=== PATIENT | female | born 1970 | race Caucasian/White ===

== ENCOUNTER → 2017-06-24 | Outpatient (CLI) | payer SELFPAY | END | disposition home or self-care (01) | LOC: GMATM 20:42 | PROVIDERS: ATTEND Nurse Practitioner Family | DX: N30.01 Acute cystitis with hematuria (principal) ==

== ENCOUNTER 2018-01-01 04:41 | Emergency (ER) | payer OTHER ==
[2018-01-01] MEDS ORDERED: LACTATED RINGERS 1,000 ML IVS ONE (04:59)
--- NOTE | 2018-01-01 04:59 | ED.PDOC ---
History of Present Illness - General Information Source: patient Exam Limitations: no limitations - History of Present Illness Initial Comments: Eulalia Blunt 47 y/o female came to ER after she woke up early this am with sudden onset of dull pain right side of abdomen radiating to her back followed by multiple episodes of nausea /vomiting with fresh blood in the vomitus and getting more constant and not better so was brought to ER.No diarrhea had regular bm this am,no dysuria,no hematuria.No chronic medical problems except for hypothyroidism. Abdominal Pain Onset Location: RLQ Pain Radiation: back Quality: dull, steady Timing/Duration: 1-3 hours Improving Factors: nothing Worsening Factors: nothing Associated Symptoms: nausea/vomiting <Mayito Smyth - Last Filed: 01/01/18 06:48> <Tien Grover - Last Filed: 01/01/18 08:47> - General Chief Complaint: Abdominal Pain Stated Complaint: R abd. pain poss. r/t cyst, N/V Time Seen by Provider: 01/01/18 04:56 Review of Systems - Review of Systems Constitutional: States: no symptoms reported EENTM: States: no symptoms reported Respiratory: States: no symptoms reported Cardiology: States: no symptoms reported Gastrointestinal/Abdominal: States: see HPI Genitourinary: States: no symptoms reported Musculoskeletal: States: no symptoms reported Skin: States: no symptoms reported Neurological: States: no symptoms reported <Mayito Smyth R - Last Filed: 01/01/18 06:48> Past Medical History (General) - Patient Medical History Hx Other PMH: Yes - hypothyroidism Surgical History: other - breast reduction - Social History Hx Tobacco Use: No Hx Alcohol Use: No Hx Substance Use: No Hx Physical Abuse: No Hx Emotional Abuse: No - Female History Hx Last Menstrual Period: 11/28/15 - irregular periods Patient : No <Mayito Smyth - Last Filed: 01/01/18 06:48> Family Medical History - Family History Mother Family History: Unknown Hx Cardiac Disease: Yes - dad <Mayito Smyth R - Last Filed: 01/01/18 06:48> Physical Exam - Physical Exam General Appearance: Alert, Anxious, No apparent distress Eyes, Ears, Nose, Throat Exam: normal ENT inspection, pharynx normal Neck: non-tender, full range of motion, supple Respiratory: chest non-tender, lungs clear, normal breath sounds Cardiovascular/Chest: normal peripheral pulses, regular rate, rhythm, no murmur Peripheral Pulses: No deficit Gastrointestinal/Abdominal: normal bowel sounds, soft, no organomegaly, no pulsatile mass, tenderness - right side abdomen,no guarding ,no rigidity Back Exam: no CVA tenderness, no vertebral tenderness Extremity: non-tender, no pedal edema, no calf tenderness Neurologic: no motor/sensory deficits, alert, oriented x 3 Skin Exam: normal color, warm/dry <Mayito Smyth R - Last Filed: 01/01/18 06:48> Progress - Progress Progress: 01/01/18 05:33 Vital Signs - 8 hr 01/01/18 04:49 Temperature 98.9 F Pulse Rate [ 57 L monitor] Respiratory 16 Rate Blood Pressure 159/92 [Left Arm] O2 Sat by Pulse 99 Oximetry - Results/Orders Results/Orders: 01/01/18 04:59 IV Care:Saline Lock per Protoc QSHIFT CARDIAC PANEL,ER Stat HEPATIC FUNCTION PANEL Stat URINALYSIS Stat 01/01/18 05:12 LIPASE Stat 01/01/18 06:01 URINE DRUG SCREEN, 7 ASSAY Stat 01/01/18 06:11 Hold Metformin x 48Hrs [id number] Abdomen/Pelvis w/Contrast [CT] Stat 01/01/18 06:43 Chest,1 View [RAD] Stat Laboratory Results - last 24 hr 01/01/18 01/01/18 01/01/18 04:59 05:12 06:18 WBC 13.8 H RBC 4.94 Hgb 15.2 Hct 46.0 MCV 93.1 MCH 30.7 MCHC 33.0 RDW 13.0 Plt Count 275 MPV 8.9 Absolute Neuts (auto) 11.80 H Absolute Lymphs (auto) 1.00 Absolute Monos (auto) 0.70 Absolute Eos (auto) 0.10 Absolute Basos (auto) 0.10 Neutrophils % 85.5 H Lymphocytes % 7.6 L Monocytes % 5.1 Eosinophils % 0.9 L Basophils % 0.9 Sodium 140 Potassium 4.3 Chloride 109 Carbon Dioxide 21 Anion Gap 14.3 BUN 17 Creatinine 0.88 BUN/Creatinine Ratio 19.3 Random Glucose 119 H Serum Osmolality 282.1 Calcium 9.4 Magnesium 2.0 Total Bilirubin 0.8 Direct Bilirubin 0.2 Indirect Bilirubin 0.6 AST 22 ALT 11 Alkaline Phosphatase 46 Creatine Kinase 105 CK-MB (CK-2) 1.2 CK-MB (CK-2) % Not Reportable Troponin I < 0.02 Serum Total Protein 6.9 Albumin 4.2 Serum HCG, Qual Negative Stool Occult Blood Negative <HajaEdmond R - Last Filed: 01/01/18 06:48> - Progress Progress: 01/01/18 07:[address] ABDOMEN AND PELVIS IS REPORTEED. THE PATIENT HAS A 4 MM STONE ON THE PROXIMAL RIGHT URETER WITH MODERATE HYDRONEPHROSIS. 01/01/18 08:26 THE CHEST X RAY IS NEGATIVE FOR ACUTE PROCESS. <Tien Grover - Last Filed: 01/01/18 08:47> Departure <Mayito Smyth R - Last Filed: 01/01/18 06:48> - Departure Time of Disposition: 08:43 Diet: resume usual diet Activity: increase activity as tolerated <Tien Grover - Last Filed: 01/01/18 08:47> - Departure Clinical Impression: Renal colic on right side, Ureterolithiasis Abdominal pain Qualifiers: Abdominal location: right lower quadrant Qualified Code(s): R10.31 - Right lower quadrant pain Disposition: Discharge to Home or Self Care Condition: Good Departure Forms: ED Discharge - Pt. Copy, Patient Portal Self Enrollment Instructions: Renal Colic (DC) Prescriptions: Tramadol HCl 50 mg PO Q6HRS #20 tab Ondansetron HCl [Zofran] 4 mg PO Q8HRS #15 ml Ketorolac Tromethamine 10 mg PO RTTID 5 Days tab Home Medications: Ambulatory Orders Ketorolac Tromethamine 10 mg PO RTTID 5 Days tab 01/01/18 Levothyroxine Sodium [Synthroid] 0.125 mg PO AC 01/01/18 Ondansetron HCl [Zofran] 4 mg PO Q8HRS #15 ml 01/01/18 Tramadol HCl 50 mg PO Q6HRS #20 tab 01/01/18
[2018-01-01 05:04] VITALS: TEMP 98.9
[2018-01-01] MEDS ORDERED: ONDANSETRON INJ 4 MG/2 ML VIAL IV ONE (05:12)
[2018-01-01] MEDS ORDERED: MORPHINE SULFATE INJ 10 MG/ML VIAL IV ONE ×3 (05:12→07:42)
[2018-01-01] MEDS ORDERED: PANTOPRAZOLE INJECTION 80 MG in SODIUM CHLORIDE 0.9% 100ML 80 ML IVPB ONE (05:35)
[2018-01-01] MEDS ORDERED: SODIUM CHLORIDE 0.9% 100ML 100 ML IVPB ONE (05:44)
[2018-01-01] MEDS ORDERED: PANTOPRAZOLE SODIUM IV 40 MG VIAL ONE (05:44)
[2018-01-01] MEDS ORDERED: PROMETHAZINE HCL INJ 25 MG/ML VIAL IM ONE (06:01)
--- NOTE | 2018-01-01 06:56 | CT ---
EXAM DESCRIPTION: CT ABDOMEN AND PELVIS WITH CONTRAST CLINICAL HISTORY: Right-sided abdominal pain COMPARISON: None Available. TECHNIQUE: CT of the abdomen and pelvis performed following IV administration of iodinated contrast DLP: 518.22 mGycm FINDINGS: Lung Bases: The visualized lung bases are clear. Bones: No destructive bone lesions identified. Mild endplate spondylosis. Abdomen: Liver: The liver has normal size and density. No intrahepatic mass or biliary dilatation. Gallbladder: No calcified gallstones. Spleen, Pancreas, and Adrenal Glands: The spleen, pancreas, and adrenal glands are unremarkable. Kidneys: Moderate right hydronephrosis. There is a 0.4 cm obstructing calculus in the proximal right ureter. Mild perinephric fluid on the right. Bosniak class I right renal cyst. No left-sided hydronephrosis. Vasculature: The aorta and IVC have normal caliber and position. The portal vein is patent. The proximal visceral and renal arteries are patent. Stomach: The stomach and duodenum have normal course. Other: No free intraperitoneal air. No free fluid or lymphadenopathy. Pelvis: Bladder: Urinary bladder is unremarkable. Bowel: No dilated loops of large or small bowel. Appendix: Normal appendix. Pelvis: Uterus is not enlarged. IMPRESSION: 1. There is a 0.4 cm obstructing calculus in the proximal right ureter producing moderate right hydronephrosis. This exam was performed according to our departmental dose-optimization program, which includes automated exposure control, adjustment of the mA and/or kV according to patient size and/or use of iterative reconstruction technique. Electronically signed by: Kiko Aleman 01/01/2018 6:55 AM CDT
--- NOTE | 2018-01-01 07:48 | RAD ---
EXAM DESCRIPTION: Chest,1 View CLINICAL HISTORY:47 years Female, N/v Comparison: None FINDINGS: No focal lung consolidation. No pleural effusion. No pneumothorax. Cardiac and mediastinal silhouette is unremarkable. No acute osseous abnormality. Soft tissues are unremarkable. IMPRESSION: No acute findings. No focal lung consolidation. Electronically signed by: Moose Alvarez MD 01/01/2018 7:47 AM CDT
[2018-01-01] MEDS ORDERED: KETOROLAC TROMETHAMINE INJ 30 MG/ML VIAL IV ONE ×2 (09:00→09:02)
[2018-01-01 10:45] VITALS: BP 132/84; O2SAT 99
== END 2018-01-01 10:35 | disposition home or self-care (01) ==
LOC: ER 04:41
DX: N13.2 Hydronephrosis with renal and ureteral calculous obstruction (principal); R11.2 Nausea with vomiting, unspecified; E03.9 Hypothyroidism, unspecified
CPT/HCPCS: 71045; 74177; 80048; 80076; 80307; 81001; 82270; 82550; 82553; 83690; 84484; 84703; 85025; 85610; 85730; J1885; J2270; J2405; J2550; J7050; J7120